=== PATIENT | male | born 1970 | race American Indian/Alaskan Native ===

== ENCOUNTER 2021-03-28 12:15 | Outpatient (CLI) | payer SELFPAY ==
[2021-03-28 13:28] LABS: INR 1.36 (0.87-1.13)
== END 2021-03-28 12:16 | disposition home or self-care (01) ==
LOC: LAB 12:15
PROVIDERS: ATTEND Internal Medicine
DX: I50.9 Heart failure, unspecified (principal); Z79.01 Long term (current) use of anticoagulants; Z95.811 Presence of heart assist device
CPT/HCPCS: 36415; 85610

== ENCOUNTER 2021-07-25 19:28 | Emergency (ER) | payer SELFPAY ==
[~2021-07-25 19:28] MED LIST: EPINEPHrine 1 MG/10 ML SYRINGE ONE
[2021-07-25] MEDS ORDERED: NORepinephrine/NS 4 MG-250 ML 0 MG/0 ML BAG IV ONE (19:37)
--- NOTE | 2021-07-25 21:55 | Emergency Department Report ---
ED CPR HPI - General Chief Complaint: Cardiac Arrest/CPR Stated Complaint: CARDIAC ARREST Time Seen by Provider: 07/25/21 19:47 Source: EMS (Verbal report received from emergency medical services. EMS documentation not available at time of chart dictation ), RN notes reviewed Mode of arrival: Stretcher Limitations: Altered Mental Status, Physical Limitation - History of Present Illness Initial Comments: The patient was evaluated in the emergency department for symptoms described in the history of present illness. He/she was evaluated in the context of the global COVID-19 pandemic, which necessitated consideration that the patient might be at risk for infection with the virus that causes COVID-19. Institutional protocols and algorithms that pertain to the evaluation of patients at risk for COVID-19 are in a state of rapid change based on information released by regulatory bodies including the CDC and federal and state organizations. These policies and algorithms were followed during the patient's care in the emergency department. Please note that these policies, procedures and recommendations changed on a rapid basis. The patient is a 51-year-old gentleman. He is not known to myself previously. He is brought to the hospital by emergency medical services as an out of hospital cardiac arrest. Patient arrives with a supraglottic airway, right lower extremity IO, is receiving active CPR, and he presents with a GCS of 3T. EMS reports that they responded to an [id number] nontraumatic cardiac arrest. They report that the patient has been pulseless for approximately 20 to 25 minutes. They indicate that bystanders did not start CPR. EMS reports that in the field, the patient was in pulseless electrical activity. The patient never had a shockable rhythm. The patient received epinephrine, and had a normal Accu-Chek in the field. Upon arrival, patient receiving active CPR, pupils fixed and dilated, and do not react to light. Supraglottic airway is in place. Patient also has evidence of dehiscence of central chest wound, and evidence of an LVAD. The lines appear to be in place. There are 2 batteries attached to the LVAD. EMS continue CPR. In spite of the vigorous resuscitation, return of spontaneous circulation cannot be obtained. Resuscitative efforts were terminated secondary to medical futility. The patient's fianc presented later on, and over cell phone, his niece, Ms. Yasmine Fitzgerald who reported herself as the next of kin, gave consent for discussion of his care. The patient's family and his fiance were informed of his . MD Complaint: other (As per EMS, patient collapsed) -: minute(s) (25 minutes prior to arrival) Place: home Initial Findings in the Field: no pulse, PEA ROSC in the Field: No Associated Injuries: No Treatments Prior to Arrival: other airway device, chest compressions, epinephrine mgs # - Related Data Allergies Allergy/AdvReac Type Severity Reaction Status Date / Time No Known Allergies Allergy Verified 07/25/21 19:48 ED Review of Systems ROS: Stated complaint: CARDIAC ARREST Other details as noted in HPI Comment: Unobtainable due to pts medical conditions ED Past Medical Hx - Past Medical History Hx Hypertension: Yes Hx Diabetes: Yes Hx Renal Disease: Yes Hx Arthritis: Yes ED Physical Exam - General Limitations: Altered Mental Status, Physical Limitation General appearance: obtunded, obese, other (GCS of 3T) - Head Head exam: Present: atraumatic, normocephalic - Eye Eye exam: Absent: normal appearance (Pupils dilated and do not react to light) - ENT ENT exam: Present: normal orophraynx, mucous membranes moist, normal external ear exam, other (Copious emesis noted in the oropharynx. Supraglottic airway noted in the oropharynx) - Neck Neck exam: Present: normal inspection - Respiratory Respiratory exam: Present: other (The patient is not breathing spontaneously) - Cardiovascular Cardiovascular Exam: Present: other (The patient is pulse) - GI/Abdominal GI/Abdominal exam: Present: soft, other (Driveline was noted in the abdomen. There is a right-sided NISHANT drain. There is purulent discharge noted on the subxiphoid). Absent: distended, tenderness - Rectal Rectal exam: Present: deferred - Extremities Exam Extremities exam: Absent: normal inspection (I/O noted in the right lower extremity. Necrotic tissue noted on the right hand.) - Back Exam Back exam: Present: normal inspection - Neurological Exam Neurological exam: Present: altered (GCS of 3T) - Psychiatric Psychiatric exam: Present: other (The patient is nonverbal) - Skin Skin exam: Present: dry, other (There is a midsternal vertical area of dehiscence, approximately 6 cm) - Intubation Time Out Performed: No (Emergency situation) Laryngoscope: fiberoptic video scope Size: 4 ET Tube Size: 7.5 Tube Secured Depth (cm): 23 Tube Secured Location: lips Tube Placement Confirmation: visualized tube passing t, equal breath sounds bilat, no breath sounds over epi Patient Tolerated Procedure: well Intubation Complications: none ED Medical Decision Making - Medical Decision Making Differential diagnosis, including but not limited to: Acute coronary syndrome, pulmonary embolism, intracranial hemorrhage, LVAD pump failure, LVAD thrombosis, LVAD infection Critical care attestation.: If time is entered above; I have spent that time in minutes in the direct care of this critically ill patient, excluding procedure time. ED Disposition Clinical Impression: Cardiac arrest, LVAD (left ventricular assist device) present Disposition: 20 Is pt being admited?: No Does the pt Need Aspirin: No Condition: Undetermined Referrals: PRIMARY CARE, [Primary Care Provider] - 3-5 Days
== END 2021-07-25 23:00 ==
LOC: ED 19:28
DX: I46.9 Cardiac arrest, cause unspecified (principal); Z95.811 Presence of heart assist device; I12.9 Hypertensive chronic kidney disease with stage 1 through stage 4 chronic kidney disease, or unspecified chronic kidney disease; E11.22 Type 2 diabetes mellitus with diabetic chronic kidney disease; N18.9 Chronic kidney disease, unspecified; M19.90 Unspecified osteoarthritis, unspecified site
CPT/HCPCS: 31500; 92950; 99285; J0171